=== PATIENT | female | born 2000 | race Caucasian/White ===

== ENCOUNTER 2019-12-07 13:58 | Inpatient (IN) | payer OTHER ==
[~2019-12-07] VITALS: Ht 154.9 cm; Wt 84.0 kg
[~2019-12-07 13:58] MED LIST: AMOXICILLIN500 MG PO; CRUTCH1 EACH; NORCO 5-325 TA1 EACH PO
--- NOTE | 2019-12-07 20:28 | PR ---
[facility] [address] [place], [place] [address] Signed Progress Notes IP Datetime Report Generated by JENNIFER: 12/07/2019 20:27 PROGRESS NOTES: [id number] Impression: Normal progression of labor; Reassuring heart rate Procedures: Artificial ROM; Intrauterine Pressure Catheter; Scalp Electrode; Sterile Vag Exam Plan: Continue present management Informed Consent Obtain: Vaginal Delivery; Section Delivery VITAL SIGNS: [id number] Vital Signs: Reviewed VS Notable Details: No sustained severe BPs EXAM: [id number] Dilatation: 2.0 Effacement: 70 Station: -3 Uterine Contractions: q 1 minutes MEMBRANES: [id number] Membrane Status: Intact Amniotic Fluid Color: Clear ROM Note: After informed consent, vertex noted to be well applied to cervix. AROM was easily performed for moderate amount of clear fluid. IUPC and FSE easily placed to ensure accurate assessement. Mother and baby tolerated well Comments: Pt seen and examined. Doing well. Scant blood <10cc over the past few hours. FHT continues Cat 1 tracing. Contractions frequent and low amplitude. On exam, no blood noted in vagina and small amount of blood inside the os. AROM and internal monitors placed as above. Pt w/ continued elevated BPs but no sustained elevated BPs. Will send urine for urine pro/creat ratio. Reviewed normal CMP / CBC / coags. Fetus A: [id number] FHR Baseline: 150 Variability: Moderate 6-25bpm Accelerations: 15X15 Decelerations: None FHR Category: Category I Presentation: Vertex Comments on Fetus A: No evidence of metabolic acidosis Fetus B: [id number] Signing Physician: Latosha Dias DO *Electronically Signed* 12/07/192026 LATOSHA DIAS DO PATIENT NAME: SILKE MILLER CHANCE PROGRESS NOTE DATE OF : 98 PHYSICIAN: LATOSHA DIAS DO RPT #: [id number] REPORT IS CONFIDENTIAL AND NOT TO BE RELEASED WITHOUT AUTHORIZATION [place] [id number] [place] [address] Signed Copies: ~ *Electronically Signed* 12/07/192026 LATOSHA DIAS DO PATIENT NAME: SILKE MILLER CHANCE PROGRESS NOTE DATE OF : 98 PHYSICIAN: LATOSHA DIAS DO RPT #: [id number] REPORT IS CONFIDENTIAL AND NOT TO BE RELEASED WITHOUT AUTHORIZATION
--- NOTE | 2019-12-07 22:29 | PR ---
[facility] [address] [place], [place] [address] Signed Progress Notes IP Datetime Report Generated by CPTea: 12/07/2019 22:29 PROGRESS NOTES: [id number] Impression: Reassuring heart rate Procedures: Sterile Vag Exam Plan: Continue present management Informed Consent Obtain: Vaginal Delivery VITAL SIGNS: [id number] Vital Signs: Reviewed; Within Normal Limits VS Notable Details: No sustained severe BPs EXAM: [id number] Dilatation: 2.0 Effacement: 70 Station: -3 Uterine Contractions: q 1 minutes MEMBRANES: [id number] Membrane Status: Intact Amniotic Fluid Color: Clear ROM Note: After informed consent, vertex noted to be well applied to cervix. AROM was easily performed for moderate amount of clear fluid. IUPC and FSE easily placed to ensure accurate assessement. Mother and baby tolerated well Comments: Pt seen and examined. Doing well. Comfortable w/ contractions. No signficant cervical change noted. Bleeding has nearly completely resolved. Consider augmentation w/ pitocin per protocol if no cervical change noted. Reviewed normal urine pro/creat ration. BPs improved. All questions answered Fetus A: [id number] FHR Baseline: 140 Variability: Moderate 6-25bpm Accelerations: 15X15 Decelerations: None FHR Category: Category I Presentation: Vertex Comments on Fetus A: No evidence of metabolic acidosis Fetus B: [id number] Signing Physician: Latosha Dias DO Copies: *Electronically Signed* 12/07/19 0423 LATOSHA DIAS DO PATIENT NAME: SILKE MILLER PROGRESS NOTE DATE OF : 98 PHYSICIAN: LATOSHA DIAS DO RPT #: [id number] REPORT IS CONFIDENTIAL AND NOT TO BE RELEASED WITHOUT AUTHORIZATION [address] [place] [address] Signed ~ *Electronically Signed* 12/07/192228 LATOSHA DIAS DO PATIENT NAME: SILKE MILLER PROGRESS NOTE DATE OF : 98 PHYSICIAN: LATOSHA DIAS DO RPT #: [id number] REPORT IS CONFIDENTIAL AND NOT TO BE RELEASED WITHOUT AUTHORIZATION
--- NOTE | 2019-12-08 04:08 | PR ---
[facility] [address] [place], [place] [address] Signed Progress Notes IP Datetime Report Generated by JENNIFER: 12/08/2019 04:08 PROGRESS NOTES: [id number] Impression: Reassuring heart rate; Slow Progression of Labor Procedures: Sterile Vag Exam Plan: Continue present management Informed Consent Obtain: Vaginal Delivery VITAL SIGNS: [id number] Vital Signs: Reviewed; Within Normal Limits VS Notable Details: No sustained severe BPs EXAM: [id number] Dilatation: 4.5 Effacement: 70 Station: -3 Uterine Contractions: q 1 minutes MEMBRANES: [id number] Membrane Status: Intact Amniotic Fluid Color: Clear ROM Note: After informed consent, vertex noted to be well applied to cervix. AROM was easily performed for moderate amount of clear fluid. IUPC and FSE easily placed to ensure accurate assessement. Mother and baby tolerated well Comments: Pt doing well. Continues to be comfortable w/ ctxs. Pitocin was started per protocol and now pt 4.5cm per RN's recent check. FHT reassuring. Bleeding has continued to be very scant. BPs improved. Will continue pitocin. Fetus A: [id number] FHR Baseline: 145 Variability: Moderate 6-25bpm Accelerations: None Decelerations: None FHR Category: Category I Presentation: Vertex Comments on Fetus A: No evidence of metabolic acidosis Fetus B: [id number] Signing Physician: Latosha Dias DO Copies: *Electronically Signed* 12/08/19 0408 LATOSHA DIAS DO PATIENT NAME: SILKE MILLER PROGRESS NOTE DATE OF : 98 PHYSICIAN: LATOSHA DIAS DO RPT #: [id number] REPORT IS CONFIDENTIAL AND NOT TO BE RELEASED WITHOUT AUTHORIZATION [address] [place] [address] Signed ~ *Electronically Signed* 12/08/19 0408 LATOSHA DIAS DO PATIENT NAME: SILKE MILLER PROGRESS NOTE DATE OF : 98 PHYSICIAN: LATOSHA DIAS DO RPT #: [id number] REPORT IS CONFIDENTIAL AND NOT TO BE RELEASED WITHOUT AUTHORIZATION
--- NOTE | 2019-12-08 06:20 | PR ---
[facility] [address] [place], [place] [address] Signed Progress Notes IP Datetime Report Generated by JENNIFER: 12/08/2019 06:20 PROGRESS NOTES: [id number] Impression: Normal progression of labor; Reassuring heart rate Procedures: Sterile Vag Exam; Amnio Infusion Plan: Anticipate Vaginal Delivery Other Plans: amnioinfusion Informed Consent Obtain: Vaginal Delivery VITAL SIGNS: [id number] Vital Signs: Reviewed VS Notable Details: No severe range BPs EXAM: [id number] Dilatation: 8.5 Effacement: 90 Station: -1 Uterine Contractions: Irregular q 1 - 4 minutes MEMBRANES: [id number] Membrane Status: Intact Amniotic Fluid Color: Clear ROM Note: After informed consent, vertex noted to be well applied to cervix. AROM was easily performed for moderate amount of clear fluid. IUPC and FSE easily placed to ensure accurate assessement. Mother and baby tolerated well Comments: Pt seen and examined. Doing well. Continues very comfortable w/ contractions. No vaginal bleeding noted. FHT shows variable decelerations. Pitocin was discontinued. Reviewed variable decelerations and cervical dilation w/ pt. Will start amnioinfusion. Reviewed indications for or operative vaginal delivery. All questions answered and pt and agree to plan of care Fetus A: [id number] FHR Baseline: 145 Variability: Moderate 6-25bpm Accelerations: None Decelerations: Variable FHR Category: Category II Presentation: Vertex Other Presentation: BIENVENIDO Comments on Fetus A: Reassuring FHT with variabile decelerations and moderate variability noted Fetus B: [id number] Signing Physician: Latosha Dias DO *Electronically Signed* 12/08/19 0620 LATOSHA DIAS DO PATIENT NAME: SILKE MILLER PROGRESS NOTE DATE OF : 98 PHYSICIAN: LATOSHA DIAS DO RPT #: [id number] REPORT IS CONFIDENTIAL AND NOT TO BE RELEASED WITHOUT AUTHORIZATION [facility] [address] [place] [address] Signed Copies: ~ *Electronically Signed* 12/08/19 0620 LATOSHA DIAS DO PATIENT NAME: SILKE MILLER CHANCE PROGRESS NOTE DATE OF : 98 PHYSICIAN: LATOSHA DIAS DO RPT #: [id number] REPORT IS CONFIDENTIAL AND NOT TO BE RELEASED WITHOUT AUTHORIZATION
--- NOTE | 2019-12-08 08:02 | PR ---
[facility] [address] [facility] [place], [place] [address] Signed PP Progress Notes Datetime Report Generated by CPN: 12/08/2019 08:02 SUBJECTIVE: [id number] Pain: Within normal limits Nausea/Vomiting: Present Flatus: Yes Bowel Movement: No Vital Signs: [id number] Vital Signs: Reviewed; Within Normal Limits EXAM: [id number] Cardiovascular: Normal Respiratory: Normal Abdomen/Uterus: Normal Lochia: Normal Vulva/Perineum: Not Done Breasts: Not Done CVA Tenderness: Normal Extremities: Normal Incision: Not Applicable Progress: Normal Exam Comments: Fundus firm U-2 nontender IMPRESSION/PLAN/PROCEDURES: [id number] Impression: Normal progression Plan: Continue present management Progress Notes: Pt seen and examined. Doing well. Ambulating voiding and tolerating full diet. Pain and lochia minimal. Nausea controlled and no vomiting. well. Anticipate d/c home tomorrow Signing Physician: Latosha Dias DO Copies: ~ *Electronically Signed* 12/08/19 0802 LATOSHA DIAS DO PATIENT NAME: SILKE MILLER PROGRESS NOTE DATE OF : 98 PHYSICIAN: LATOSHA DIAS DO RPT #: [id number] REPORT IS CONFIDENTIAL AND NOT TO BE RELEASED WITHOUT AUTHORIZATION
--- NOTE | 2019-12-09 07:44 | PR ---
[facility] [address] [place], [place] [address] Signed PP Progress Notes Datetime Report Generated by JENNIFER: 12/09/2019 07:44 SUBJECTIVE: [id number] Pain: Within normal limits Nausea/Vomiting: Denies Flatus: Yes Bowel Movement: Yes Vital Signs: [id number] Vital Signs: Reviewed Notable Details: No severe range BPs EXAM: [id number] Cardiovascular: Normal Respiratory: Normal Abdomen/Uterus: Normal Lochia: Normal Vulva/Perineum: Not Done Breasts: Not Done CVA Tenderness: Normal Extremities: Normal Incision: Not Applicable Progress: Normal Exam Comments: Fundus firm U-2 nontender. No RUQ pain IMPRESSION/PLAN/PROCEDURES: [id number] Impression: Normal progression; Induced Hypertension Plan: Discharge Progress Notes: Pt seen and examined. Doing well. Ambulating voiding and tolerating full diet. Pain and lochia minimal. well. No fevers/chills. No RUQ pain, visual changes, or YOO. No severe range bps, but mild elevations. Reviewed discharge teaching in detail including preE. Pt to f/u in 2 days for BP check Signing Physician: Latosha Dias DO Copies: ~ *Electronically Signed* 12/09/19 0744 LATOSHA DIAS DO PATIENT NAME: SILKE MILLER PROGRESS NOTE DATE OF : 98 PHYSICIAN: LATOSHA DIAS #: [id number] REPORT IS CONFIDENTIAL AND NOT TO BE RELEASED WITHOUT AUTHORIZATION
== END 2019-12-09 10:45 | disposition home or self-care (01) | DRG 807 ==
LOC: FBCO 13:58 → FBC 16:12
PROVIDERS: ADMIT Obstetrics & Gynecology
PROC: 10907ZC Drainage of Amniotic Fluid, Therapeutic from Products of Conception, Via Natural or Artificial Opening (ICD-10-PCS; 2019-12-07)
PROC: 10H07YZ Insertion of Other Device into Products of Conception, Via Natural or Artificial Opening (ICD-10-PCS; 2019-12-07)
PROC: 00HU33Z Insertion of Infusion Device into Spinal Canal, Percutaneous Approach (ICD-10-PCS; 2019-12-07)
PROC: 3E0R3BZ Introduction of Anesthetic Agent into Spinal Canal, Percutaneous Approach (ICD-10-PCS; 2019-12-07)
PROC: 10E0XZZ Delivery of Products of Conception, External Approach (ICD-10-PCS; principal; 2019-12-08)
PROC: 0KQM0ZZ Repair Perineum Muscle, Open Approach (ICD-10-PCS; 2019-12-08)
PROC: 0UQMXZZ Repair Vulva, External Approach (ICD-10-PCS; 2019-12-08)
DX: O45.93 Premature separation of placenta, unspecified, third trimester (principal); Z37.0 Single live birth; Z3A.38 38 weeks gestation of pregnancy; O76 Abnormality in fetal heart rate and rhythm complicating labor and delivery; O70.1 Second degree perineal laceration during delivery; O71.82 Other specified trauma to perineum and vulva; O13.4 Gestational [pregnancy-induced] hypertension without significant proteinuria, complicating childbirth; Z88.1 Allergy status to other antibiotic agents
CPT/HCPCS: 01960; 36415; 59025; 80053; 82570; 84156; 85025; 85027; 85384; 85610; 85730; 86850; 86900; 86901; 99213; A9270; J2590; J2795; J3010; J7121

== ENCOUNTER 2021-12-03 23:53 | Inpatient (IN) | payer OTHER ==
[~2021-12-03] VITALS: Ht 154.9 cm; Wt 68.0 kg
--- NOTE | 2021-12-04 01:44 | NUR ---
COVID SWAB DONE TO BOTH NARES AND SENT TO IN HOUSE LAB.
--- NOTE | 2021-12-04 10:57 | PR ---
[facility] [address] [facility] [place], [place] [address] Signed Progress Notes IP Datetime Report Generated by CPN: 12/04/2021 10:57 PROGRESS NOTES: [id number] Impression: Normal Progression of Labor; Reassuring Heart Rate Plan: Anticipate Vaginal Delivery Informed Consent Obtain: Vaginal Delivery VITAL SIGNS: [id number] Vital Signs: Reviewed; Within Normal Limits EXAM: [id number] Dilatation: 10.0 Effacement: 90 Station: -3 Contractions: q 2-3 min MEMBRANES: [id number] Comments: Pt seen and evaluated. On comode c/o pressure. Cx exam by RN shows complete. Will prepare for . FETUS A: [id number] FHR Baseline: 125 Variability: Moderate 6-25bpm Accelerations: 15X15 Decelerations: None FHR Category: Category I Presentation: Vertex Comments on Fetus A: No evidence of metabolic acidosis FETUS B: [id number] Signing Physician: Latosha Dias DO Copies: ~ *Electronically Signed* 12/04/21 1057 LATOSHA DIAS DO PATIENT NAME: SILKE MILLER PROGRESS NOTE DATE OF : 98 PHYSICIAN: LATOSHA DIAS DO RPT #: [id number] REPORT IS CONFIDENTIAL AND NOT TO BE RELEASED WITHOUT AUTHORIZATION
== END 2021-12-05 11:50 | disposition home or self-care (01) | DRG 807 ==
LOC: FBC 12-04 00:02
PROVIDERS: ADMIT Obstetrics & Gynecology; ATTEND Obstetrics & Gynecology
PROC: 10E0XZZ Delivery of Products of Conception, External Approach (ICD-10-PCS; principal; 2021-12-04)
PROC: 10907ZC Drainage of Amniotic Fluid, Therapeutic from Products of Conception, Via Natural or Artificial Opening (ICD-10-PCS; 2021-12-04)
DX: O13.4 Gestational [pregnancy-induced] hypertension without significant proteinuria, complicating childbirth (principal); Z37.0 Single live birth; Z3A.39 39 weeks gestation of pregnancy; O43.123 Velamentous insertion of umbilical cord, third trimester; O99.02 Anemia complicating childbirth; D64.9 Anemia, unspecified
CPT/HCPCS: 36415; 85027; 86850; 86900; 86901; 87502; A9270; C9803; J2405; J2590; U0003

== ENCOUNTER 2023-12-05 07:43 | Inpatient (IN) | payer OTHER ==
[~2023-12-05] VITALS: Ht 154.9 cm; Wt 70.8 kg
[2023-12-05 08:14] LABS: HEMATOCRIT 31.6 % (35.0-50.0); HEMOGLOBIN 10.8 g/dL (12.0-18.0); MCH 28.7 (27-36); MCHC 34.1 g/dl (30-36); MCV 84.2 fl (81-99); RBC 3.75 M/ul (4.3-5.7)
[2023-12-05] MEDS ORDERED: PENICILLIN G POTASSIUM 5 MUNITS/110 ML PIGGYBACK IV ONE (08:15)
[2023-12-05] MEDS ORDERED: OXYTOCIN/DEXTROSE 5% 20 UNITS/100 ML BAG IV SCH (08:15)
[2023-12-05] MEDS ORDERED: MAGNESIUM HYDROXIDE/AL HYDROX 30 ML CUP PO PRN ×2 (08:15→12:45)
[2023-12-05] MEDS ORDERED: CALCIUM CARBONATE 500 MG CHEW PO PRN ×2 (08:15→12:45)
[2023-12-05] MEDS ORDERED: ondansetron HCL 4 MG/2 ML VIAL IV ONE (08:30)
[2023-12-05 08:35] VITALS: BP 136/76
[2023-12-05 09:07] LABS: ABO A; ANTIBODY SCREEN NEGATIVE; RH POSITIVE
[2023-12-05 09:37] LABS: AMPHETAMINES, URINE NEGATIVE (NEGATIVE); BARBITURATES, URINE NEGATIVE (NEGATIVE); BENZODIAZEPINE, URINE NEGATIVE (NEGATIVE); BUPRENORPHINE, URINE NEGATIVE (NEGATIVE); CANNABINOID, URINE NEGATIVE (NEGATIVE); COCAINE, URINE NEGATIVE (NEGATIVE); ECSTASY, URINE NEGATIVE (NEGATIVE); FENTANYL, URINE NEGATIVE (NEGATIVE); METHADONE, URINE NEGATIVE (NEGATIVE); OPIATES, URINE NEGATIVE (NEGATIVE); OXYCODONE, URINE NEGATIVE (NEGATIVE); PHENCYCLIDINE, URINE NEGATIVE (NEGATIVE)
[2023-12-05] MEDS ORDERED: PENICILLIN G POTASSIUM 2.5 MUNITS in DEXTROSE 5% 100 ML IV SCH (12:00)
[2023-12-05] MEDS ORDERED: BENZOCAINE 60 ML AEROSOL TOP PRN (12:45)
[2023-12-05] MEDS ORDERED: HYDROCORTISONE ACETATE 25 MG SUPP PR PRN (12:45)
[2023-12-05] MEDS ORDERED: ACETAMINOPHEN 325 MG TAB PO PRN (12:45)
[2023-12-05] MEDS ORDERED: OXYCODONE/APAP 5/325 TAB PO PRN (12:45)
[2023-12-05] MEDS ORDERED: OXYCODONE HCL 5 MG TAB PO PRN (12:45)
[2023-12-05] MEDS ORDERED: MAGNESIUM HYDROXIDE 30 ML UDC PO PRN (12:45)
[2023-12-05] MEDS ORDERED: IBUPROFEN 600 MG TAB PO PRN (12:45)
[2023-12-05] MEDS ORDERED: HYDROCODONE/ACETA 5/325 TAB PO PRN (12:45)
[2023-12-05] MEDS ORDERED: OXYTOCIN/0.9 % SODIUM CHLORIDE 500 ML IV SCH (12:45)
[2023-12-05] MEDS ORDERED: WITCH HAZEL/GLYCERIN 1 EA PAD TOP PRN (12:45)
[2023-12-05] MEDS ORDERED: SENNOSIDES/DOCUSATE 1 EA TAB PO SCH (21:00)
[2023-12-06 05:15] LABS: HEMATOCRIT 28.9 % (35.0-50.0); HEMOGLOBIN 9.7 g/dL (12.0-18.0); MCH 28.5 (27-36); MCHC 33.4 g/dl (30-36); MCV 85.4 fl (81-99); RBC 3.39 M/ul (4.3-5.7); RDW 14.2 (10.5-15.0)
--- NOTE | 2023-12-06 11:38 | NUR ---
VISITED DURING SPIRITUAL CARE ROUNDS. PROVIDED SUPPORTIVE PRESENCE, PRAYER, HOSPTIALITY. 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
== END 2023-12-06 13:20 | disposition home or self-care (01) | DRG 807 ==
LOC: FBCO 07:43 → FBC 07:45
PROVIDERS: ADMIT Obstetrics & Gynecology; ATTEND Obstetrics & Gynecology
PROC: 10E0XZZ Delivery of Products of Conception, External Approach (ICD-10-PCS; principal; 2023-12-05)
PROC: 10907ZC Drainage of Amniotic Fluid, Therapeutic from Products of Conception, Via Natural or Artificial Opening (ICD-10-PCS; 2023-12-05)
PROC: 4A1HXCZ Monitoring of Products of Conception, Cardiac Rate, External Approach (ICD-10-PCS; 2023-12-05)
DX: O99.824 Streptococcus B carrier state complicating childbirth (principal); Z37.0 Single live birth; Z3A.39 39 weeks gestation of pregnancy; O69.81X0 Labor and delivery complicated by cord around neck, without compression, not applicable or unspecified
CPT/HCPCS: 36415; 80307; 85027; 86850; 86900; 86901; A9270; J2540; J2590

== ENCOUNTER 2024-11-15 05:45 | Day surgery (SDC) | payer OTHER ==
[~2024-11-15] VITALS: Ht 154.9 cm; Wt 56.8 kg
[~2024-11-15 05:45] MED LIST changes: +LACTATED RINGER'S 1,000 ML IV SCH
[2024-11-15 06:02] VITALS: BP 118/77
[2024-11-15] MEDS ORDERED: TYLENOL EXTRA500 MG PO (06:07)
[2024-11-15 06:24] LABS: BASOPHILS 0.7 % (0-2); EOSINOPHILS 2.5 % (0-6); HEMOGLOBIN 12.4 g/dL (12.0-18.0); LYMPHOCYTES 37.7 % (24-44); MCH 30.9 (27-36); MCHC 34.5 g/dl (30-36); MCV 89.4 fl (81-99); NEUTROPHILS 51.1 % (39-80); PLATELET COUNT 171 K/uL (140-440); RBC 4.03 M/ul (4.3-5.7); RDW 12.4 (10.5-15.0)
[2024-11-15] MEDS ORDERED: BUPIVACAINE HCL 0.5% 30 ML VIAL ONE (06:46)
[2024-11-15] MEDS ORDERED: IBLOOD GLUCOSE TEST STRIP 1 EA TEST VI PRN ×2 (07:00→07:15)
[2024-11-15] MEDS ORDERED: LIDOCAINE HCL 1% 5 ML SDV INJ ONE (07:00)
[2024-11-15] MEDS ORDERED: fentaNYL citrate 100 MCG/2 ML VIAL ONE (07:04)
[2024-11-15] MEDS ORDERED: ROCURONIUM BROMIDE 50 MG/5 ML SYR ONE (07:05)
[2024-11-15] MEDS ORDERED: SODIUM CHLORIDE 0.9% 0 ML IV ONE (07:05)
[2024-11-15] MEDS ORDERED: DEXAMETHASONE SOD PHOS 4 MG/ML VIAL ONE (07:05)
[2024-11-15] MEDS ORDERED: KETAMINE in NS 50 MG/5 ML SYR ONE (07:05)
[2024-11-15] MEDS ORDERED: propofoL 200 MG/20 ML VIAL ONE (07:05)
[2024-11-15] MEDS ORDERED: LIDOCAINE HCL 2% 5 ML SDV ONE (07:05)
[2024-11-15] MEDS ORDERED: KETOROLAC TROMETHAMINE 30 MG/ML VIAL ONE (07:05)
[2024-11-15] MEDS ORDERED: ondansetron HCL 4 MG/2 ML VIAL ONE (07:05)
[2024-11-15] MEDS ORDERED: ACETAMINOPHEN 1,000 MG/100 ML VIAL ONE (07:05)
[2024-11-15] MEDS ORDERED: dexmedeTOMIDine HCl 200 MCG/2 ML VIAL ONE (07:05)
[2024-11-15] MEDS ORDERED: ondansetron HCL 4 MG/2 ML VIAL IV PRN (07:15)
[2024-11-15] MEDS ORDERED: droPERidol 5 MG/2 ML VIAL IV PRN (07:15)
[2024-11-15] MEDS ORDERED: NALOXONE HCL 0.4 MG SYR IV PRN (07:15)
[2024-11-15] MEDS ORDERED: fentaNYL citrate 50 MCG/ML SDV IV PRN (07:15)
--- NOTE | 2024-11-15 07:32 | NUR ---
PT NOT AVAILABLE FOR VISIT. PROVIDED PRAYER.
[2024-11-15] MEDS ORDERED: SUGAMMADEX SODIUM 200 MG/2 ML ML ONE (08:27)
--- NOTE | 2024-11-15 08:51 | NUR ---
11/15/24 0851 Sheets,Crista 0842 PT ARRIVED TO PACU ON RA, PT ASLEEP AND SMALL AMOUNT OF SNORING NOTED. PT NONAROUSABLE TO TACTILE STIMULI. 0847 O2 SAT DECREASED TO 89%, RN ENCOURAGED TO DEEP BREATHING AND 2L NC PLACED, HEAD TURNED TO SIDE AND SNORING DECREASED. O2 INCREASED TO UPPER 90S.
[2024-11-15] MEDS ORDERED: HYDROCODONE/ACETA 5/325 TAB PO PRN (09:00)
[2024-11-15 10:05] VITALS: BP 98/53
--- NOTE | 2024-11-15 10:08 | NUR ---
1000- PT RETURNS FROM PACU. BEDSIDE REPORT RECIEVED WITH AT CHAIRSIDE. PT AND DENY QUESTIONS AND CONCERNS AT THIS TIME. VITAL SIGNS OBTAINED. PT REPORTS 4/10 PAIN AND NO NAUSEA. PT MOVED TO HER R SIDE AND HOB DECREASED PER PT REQUEST. PT RESTING WITH EYES CLOSED. LR INFUSING. DISCHARGE CRITERIA DISCUSSED. BED LOCKED IN THE LOWEST POSITION AND CALL LIGHT IN REACH. WATER AND JELLO PROVIDED PER REQUEST.
[2024-11-15] MEDS ORDERED: IBU600 MG PO (10:50)
[2024-11-15] MEDS ORDERED: ONDANSETRON ODT4 MG PO (10:52)
[2024-11-15] MEDS ORDERED: HYDROCODON-ACE1 EA10 PO (10:54)
[2024-11-15 11:05] VITALS: BP 106/47
--- NOTE | 2024-11-15 11:09 | NUR ---
1100- PT WAKES WITH VERBAL STIMULATION. PT SITTING UP AND SIPPING ON WATER AND EATING JELLO. PT REPORTS PAIN IS TOLERABLE AND DENIES NAUSEA. DISCHARGE CRITERIA DISCUSSED AND PT IS UNDERSTANDING. LR INFUSING. VITAL SIGNS OBTAINED. PT DENIES NEEDS AT THIS TIME.
--- NOTE | 2024-11-15 11:26 | NUR ---
1125- DISCHARGE INFORMATION GONE OVER AND EDUCATION GIVEN. PT TOLERATING ORAL FUIDS WELL AND DENIES NAUSEA. PRESCRIPTION GIVEN TO AT BEDSIDE. CALL LIGHT IN REACH AND BED IN THE LOWEST AND LOCKED POSIITON. PT AND QUESTIONS AND CONCERNS ANSWERED AT THIS TIME.
--- NOTE | 2024-11-15 12:05 | NUR ---
1125- PT UP TO USE THE RESTROOM WITH A STEADY AND EVEN GAIT. PT DENIES NAUSEA AND PAIN THAT IS 2/10 AND TOLERABLE. PT RETURNS TO ROOM. PERIPAD PROVIDED AND WIPES PER REQUEST. PT GETTING DRESSED INDEPENDENTLY. 1155- IV REMOVED. PT HAS ALL BELONGINGS. PT DENIES QUESTIONS AND CONCERNS. PT IS ABLE TO AMBULATE TO THE WHEELCHAIR. PT DC FROM DAY SURGERY AND IS ABLE TO GET INTO FAMILY VEHICLE WITH NO ISSUES.
[2024-11-15] MEDS ORDERED: SEVOFLURANE 250 ML BTL INH ONE (15:17)
--- NOTE | 2024-11-16 09:08 | OR ---
[facility] [address] [place] [address] Signed DATE OF OPERATION: 11/15/2024 SURGEON: Wesly Barker MD PREOPERATIVE DIAGNOSES: 1. Pelvic pain. 2. Left lower quadrant pain. 3. Right ovarian cyst. POSTOPERATIVE DIAGNOSES: 1. Pelvic pain. 2. Left lower quadrant pain. 3. Right ovarian cyst. PROCEDURE: Diagnostic laparoscopy with laparoscopic right ovarian cystectomy. FINDINGS: A 4-5 cm simple right ovarian cyst. Normal uterus and tubes. Normal left ovary. Normal anterior and posterior cul-de-sac. Normal descending colon. No appendix consistent with surgical history. [place] at the appendix site. Normal liver. Gallbladder not seen. ANESTHESIA: General endotracheal anesthesia. FLOAT NURSE: None. IV FLUIDS: 800 mL, crystalloid. ESTIMATED BLOOD LOSS: 5 mL. URINE OUTPUT: 100 mL, clear urine. SPECIMENS: Cyst wall. Electronically Signed By: WESLY BARKER MD 11/16/24 0908 PATIENT NAME: SILKE MILLER OPERATIVE REPORT DATE OF : [birth year] REPORT #: [id number] PHYSICIAN: WESLY BARKER MD PCP: SYED GAO REPORT IS CONFIDENTIAL AND NOT TO BE RELEASED WITHOUT AUTHORIZATION [facility] [address] [place] [address] Signed DRAINS: None. COUNTS: Correct x2. COMPLICATIONS: None apparent. TECHNIQUE IN DETAIL: With informed consent and negative hCG, the patient was taken to the operating room, where she was intubated using rapid sequence procedure. Lower extremities were placed in low-lithotomy position using Yellofins stirrups. Lower extremities had been placed in SCDs and pneumatic compression devices. She underwent a brief exam under anesthesia, was prepped and draped in sterile fashion. Time-out was performed per protocol. Speculum was placed and cervix visualized. A single-tooth tenaculum was placed on the anterior lip of the cervix and a Moore cannula was placed in the cervical canal. Red rubber catheter was used to drain her bladder and left in place for drainage during the procedure. Over gloves were then removed and tension was turned to the abdomen. A 5 mL of 0.5% Marcaine with epinephrine were injected periumbilically and another 5 mL were injected suprapubically. A 1 cm periumbilical incision was made at the site of her previous scar. A Veress needle was inserted into the abdomen without difficulty and opening pressure was 1 mmHg. With an adequate pneumoperitoneum created through the Veress needle, Veress was removed and a 5 mm non-bladed Visiport trocar was inserted into the abdomen and without difficulty. The camera was inserted and the area underneath the Veress insertion site was inspected and found to be within normal limits. The patient was then placed in Trendelenburg position. A 1 cm suprapubic incision was made and a 5 mm non-bladed port was inserted under direct visualization and without difficulty. Blunt probe was inserted and the pelvic and abdominal contents were then examined with the above-mentioned findings. After this, left lower quadrant port was placed lateral to the inferior epigastric vessels, which were visualized from them. We also avoided subcutaneous vessels using transillumination. A 5 mL of 0.5% Marcaine injected at this left lower quadrant side, a 1 cm incision was made. The 5 mm non-bladed port was inserted under direct visualization and also without difficulty. The right ovary was then grasped gently and elevated. Using [place] grasper, the cyst wall was from the overlying ovarian tissue. We then pealed away the overlying ovarian tissue from the cyst wall. At this point, the cyst ruptured and few mL of Electronically Signed By: WESLY BARKER MD 11/16/24 0908 PATIENT NAME: SILKE MILLER OPERATIVE REPORT DATE OF : [birth year] REPORT #: [id number] PHYSICIAN: WESLY BARKER MD PCP: SYED GAO REPORT IS CONFIDENTIAL AND NOT TO BE RELEASED WITHOUT AUTHORIZATION [facility] [address] [place], [place] [address] Signed serous fluid escaped. We peeled the cyst wall half of the overlying tissue quite easily. We removed that and sent it to Pathology. At this point, we ruptured few follicles that were present and looked like it could be causing some discomfort. Cauterized the bed of the ovary using combination of the LigaSure device as well as the monopolar spatula. Suction irrigation was used to clear up blood and fluid. We also used suction boardinghouse keeper to clean off the bed of the ovary, and we noted very good hemostasis. At this point, the procedure was completed. The left lower quadrant Melody ws removed and visually monitored from within to ensure good hemostasis, which was noted. We removed the suprapubic port as well. Co2 was removed from the abdomen and the umbical port was removed without difficulty. Skin incisions were closed with 4-0 Vicryl. Dermabond and Band-Aids were placed. The red rubber catheter, single-tooth tenaculum, and torn cannula were then removed and good hemostasis was noted after removal of the tenaculum. DISPOSITION: The patient was extubated in the operating room and she was taken to the recovery room in stable condition. Wesly Barker MD BB/MODL /[id number] Copies: ~ Electronically Signed By: WESLY BARKER MD 11/16/24 0908 PATIENT NAME: SILKE MILLER OPERATIVE REPORT DATE OF : [birth year] REPORT #: [id number] PHYSICIAN: WESLY BARKER MD PCP: SYED GAO REPORT IS CONFIDENTIAL AND NOT TO BE RELEASED WITHOUT AUTHORIZATION
--- NOTE | 2024-11-19 09:07 | PATH ---
[facility] [address] [place], [place] [address] Signed SPECIMEN(S): A RIGHT OVARIAN CYST SPECIMEN SOURCE: A. RIGHT OVARIAN CYST CLINICAL HISTORY: Ovarian cyst, pelvic pain FINAL PATHOLOGIC DIAGNOSIS: Ovary, right, cystectomy: - Benign follicle cyst BRP MICROSCOPIC EXAMINATION: Histologic sections of all submitted blocks are examined by light microscopy. These findings, together with the gross examination, support the pathologic diagnosis. GROSS DESCRIPTION: The specimen, labeled and designated "Alanna Mayberry, right ovarian cyst per requisition," is received in formalin and consists of a 1.8 x 1.5 x 1.3 cm aggregate of tsang-purple ovarian cyst wall. The cyst wall is smooth with no apparent papillary excrescences. The specimen is serially sectioned and entirely submitted in cassette A1. AA (under the direct supervision of a pathologist) The Gross Description was prepared using a voice recognition system. The report was reviewed for accuracy; however, sound-alike word errors, addition and/or deletions may occur. If there is any question about this report, please contact Client Services. ADDITIONAL NOTES: Immunohistochemical and/or in situ hybridization studies if performed in this case included appropriate positive controls that reacted as expected. This test was developed and its performance characteristics determined by [facility]. It has not been cleared or approved by the U.S. Food and Drug Administration. The FDA has determined that such clearance or approval is not necessary. This test is used for clinical purposes. It should not be regarded as investigational or for research. [facility] is certified under the Clinical Laboratory Improvement Amendments of 1988 (CLIA) as qualified to perform high complexity clinical PATIENT NAME: SILKE MAYBERRY PATHOLOGY DATE OF : [birth year] REPORT #: [id number] PHYSICIAN: CAROLINA GUTHRIE PCP: SYED GAO REPORT IS CONFIDENTIAL AND NOT TO BE RELEASED WITHOUT AUTHORIZATION [facility] [address] [place] [address] Signed laboratory testing. PERFORMING LABORATORY: Technical component was performed by [facility], [address] [place] [address] (CLIA# [id number]). Professional interpretation was performed by [facility] - [facility] [place]Note 2], [address] [place] [address] (CLIA#: [id number]). Diagnostician: Mark Mirza MD Pathologist Electronically Signed 11/19/2024 Copies: ~ PATIENT NAME: SILKE MAYBERRY PATHOLOGY DATE OF : [birth year] REPORT #: [id number] PHYSICIAN: CAROLINA GUTHRIE PCP: SYED GAO REPORT IS CONFIDENTIAL AND NOT TO BE RELEASED WITHOUT AUTHORIZATION
== END 2024-11-15 11:55 | disposition home or self-care (01) ==
LOC: DS 05:45
PROVIDERS: ATTEND Obstetrics & Gynecology
PROC: 0UB04ZZ Excision of Right Ovary, Percutaneous Endoscopic Approach (ICD-10-PCS; principal; 2024-11-15 07:30)
DX: N83.01 Follicular cyst of right ovary (principal); Z88.1 Allergy status to other antibiotic agents; Z79.899 Other long term (current) drug therapy
CPT/HCPCS: 00840; 36415; 84703; 85025; J0131; J1100; J1790; J1885; J2003; J2405; J2704; J3010; J3490; J7121